=== PATIENT | female | born 1990 | race Two or more races ===

== ENCOUNTER 2025-04-25 17:18 | Emergency (ER) | payer OTHER ==
[~2025-04-25] VITALS: Ht 157.5 cm; Wt 88.9 kg
--- NOTE | 2025-04-25 19:04 | DVH ---
CLINICAL INDICATION: great toe injury TECHNIQUE: 3 radiographic views of the right foot were obtained. Comparison: None FINDINGS/IMPRESSION: There is no evidence of acute fracture or dislocation. Small plantar calcaneal bony spur. The visualized joint space is well maintained. The alignment is anatomical. There is no radiopaque foreign body. Questionable Mild dorsal mid foot soft tissue edema
--- NOTE | 2025-04-25 19:19 | ED.PDOC ---
Back pain HPI HPI Comments C/O RIGHT GREAT TOE PAIN STATES DROPPED SOMETHING ON IT STATES "I HAVE A BLOOD CLOT FROM THAT AND I SAW MY DR THIS MORNING AND WAS TOLD TO COME TO THE ER TO HAVE IT DRAINED." 05/02 PAIN STATED SWELLING NOTE Chief Complaint: Lower Extremity Time Seen by MD: 18:24 Reviewed Notes: Nurses Notes, Medications, Allergies Allergies: Coded Allergies: Ibuprofen (Verified Allergy, Unknown, 04/25/25) Information Source: Patient Mode of Arrival: Ambulatory Past Medical History PAST MEDICAL HISTORY: Denies Surgical History: Denies all surgeries FISH HATCHERY INSPECTOR History: No Pertinent FISH HATCHERY INSPECTOR History Family History Family History: Reviewed,noncontributory to illness Social History Smoker: Non-Smoker Alcohol: Denies ETOH Use Drugs: Denies Drug Use All Other Systems: Reviewed and Negative (see hpi) Physical Exam General Appearance: No Apparent Distress, Normal HEENT: Normal ENT Inspection, Pharynx Normal, TMs Normal Neck: Full Range of Motion, Non-Tender, Normal, Normal Inspection Respiratory: Chest Non-Tender, Lungs Clear, No Accessory Muscle Use, No Respiratory Distress, Normal Breath Sounds Cardiovascular: No Edema, No JVD, No Murmur, No Gallop, Normal Peripheral Pulses, Regular Rate/Rhythm Breast Exam: Deferred Gastrointestinal: No Organomegaly, Non Tender, No Pulsatile Mass, Normal Bowel Sounds, Soft Genitalia: Deferred Pelvic: Deferred Rectal: Deferred Extremities: No calf tenderness, Normal capillary refill, Normal inspection, Normal range of motion, Non-tender, No pedal edema Musculoskeletal : Apperance: Normal Neurologic: Alert, forensic economist II-XII nml as Tested, No Motor Deficits, Normal Affect, Normal Mood, No Sensory Deficits Cerebellar Function: Normal Reflexes: Normal Skin: Dry, Normal Color, Warm Lymphatic: No Adenopathy Was a procedure done? Was a procedure done?: No Back Pain Differential Dx Differential Diagnosis: Fracture, Musculoskeletal Pain X-Ray, Labs, Meds, VS Vital Signs Date Time Temp Pulse Resp B/P (MAP) Pulse Ox O2 Delivery O2 Flow Rate FiO2 04/25/25 17:25 97.9 87 18 130/86 95 97.9 X-Ray, Labs, Meds, VS Comment FINDINGS/IMPRESSION: There is no evidence of acute fracture or dislocation. Small plantar calcaneal bony spur. The visualized joint space is well maintained. The alignment is anatomical. There is no radiopaque foreign body. Questionable Mild dorsal mid foot soft tissue edema Time of 1ST Reevaluation: 18:24 Reevaluation 1ST: Unchanged Time of 2ND Reevaluation: 19:19 Reevaluation 2ND: Improved Patient Education/Counseling: Diagnosis, Treatment, Prognosis, Need For Follow Up Family Education/Counseling: No Family Present SEPSIS Sepsis Screen Date sepsis recognized/suspect: Apr 25, 2025 Time Sepsis recognized/suspect: 1727 Recent Procedure: No On Antibiotic Therapy: No Respiratory Rate >20: No Heart Rate >90: No Temp<36 C (96.8 F) or >38.3 C: No SBP <90 or MAP <65 mmHG: No New Acute Mental Status Change: No Is the patient on CPAP, BIPAP,: No Physician Orders R Foot 3 View Xray (04/25/25 18:25) Vital Signs Date Time Temp Pulse Resp B/P (MAP) Pulse Ox O2 Delivery O2 Flow Rate FiO2 04/25/25 17:25 97.9 87 18 130/86 95 97.9 Departure 1 Departure Time of Disposition: 19:18 Disposition: 01 HOME / SELF CARE / HOMELESS Condition: Stable Discharged With: Self Critical Care Note Critical Care Time?: No Stability Stability form required: SHANTI Beavers Apr 25, 2025 19:19
--- NOTE | 2025-04-25 19:22 | ED.PDOC ---
History of Present Illness HPI Comments 34 y/o F presents with c/c of right, great toe pain. Patient reports on dropping an object to said toe and being sent to the ER after seeing her PCP, this morning, due to having a 'blood clot.' 05/02 in severity. Associated swelling. No endorsement of any additional injuries or acute symptoms at this time. Chief Complaint: Lower Extremity Time Seen by MD: 18:45 Reviewed Notes: Nurses Notes, Medications, Allergies Allergies: Coded Allergies: Ibuprofen (Verified Allergy, Unknown, 04/25/25) Information Source: Patient Mode of Arrival: Ambulatory Severity: Moderate Timing: Hours Duration: Since onset Prehospital treatment: None Past Medical History PAST MEDICAL HISTORY: Denies Surgical History: Denies all surgeries ANALYST SALES History: No Pertinent ANALYST SALES History All Other Systems: Reviewed and Negative (As per HPI) Physical Exam General Appearance: No Apparent Distress, Normal HEENT: Pharynx Normal Neck: Full Range of Motion, Non-Tender Respiratory: Chest Non-Tender, Lungs Clear, No Accessory Muscle Use, No Respiratory Distress, Normal Breath Sounds Cardiovascular: No Murmur, Normal Peripheral Pulses, Regular Rate/Rhythm Breast Exam: Deferred Gastrointestinal: Non Tender, Soft Genitalia: Deferred Pelvic: Deferred Rectal: Deferred Extremities: Normal capillary refill, Normal range of motion, Non-tender Musculoskeletal : Location: Right Extremity Location: Great Toe (subungual hematoma +CSM, no open lesions ) Apperance: Normal Neurologic: Alert, No Motor Deficits, Normal Affect, Normal Mood, No Sensory Deficits Cerebellar Function: Normal Reflexes: NOT DONE Skin: Dry, Normal Color, Warm Lymphatic: No Adenopathy Was a procedure done? Was a procedure done?: Yes Sedation Sedation?: No Informed consent obtained: Yes Other Procedure Procedure subungual hematoma drainage Indication pain Anesthetic none Prep alcohol pads Success 3 ccs of blood removed pt tolerated well. improved pain. cleaned and dressed Informed consent obtained: Yes Risks, benefits, and alternati: Yes Differential Dx Considerations may include: fracture, sprain, contusion, among others X-Ray, Labs, Meds, VS Vital Signs Date Time Temp Pulse Resp B/P (MAP) Pulse Ox O2 Delivery O2 Flow Rate FiO2 04/25/25 20:09 97.8 60 19 108/63 (78) 99 97.8 04/25/25 20:09 60 19 99 Room Air 04/25/25 17:25 97.9 87 18 130/86 95 97.9 [facility] [id number] [facility] [id number] Ph: [phone] DIAGNOSTIC IMAGING Diagnostic Imaging Report : [id number] Signed PATIENT: MARICRUZ SANTOS ACCT: [id number] UNIT: [id number] : 1990 LOC: ER ROOM / BED: / AGE / SEX: 34 / F ADM STATUS: REG ER SERVICE 24 ORDERING PHYSICIAN: SHANTI URBINA PROCEDURE(s): RFOOT - R FOOT 3 VIEW XRAY REASON: great toe injury ORDER NUMBER(s): [id number], ACCESSION NUMBER(s): [id number] CLINICAL INDICATION: great toe injury TECHNIQUE: 3 radiographic views of the right foot were obtained. Comparison: None FINDINGS/IMPRESSION: There is no evidence of acute fracture or dislocation. Small plantar calcaneal bony spur. The visualized joint space is well maintained. The alignment is anatomical. There is no radiopaque foreign body. Questionable Mild dorsal mid foot soft tissue edema ATED BY: APOLONIA GONZALEZ DO DICTATED DATE/TIME: 04/25/251900 SIGNED BY: APOLONIA GONZALEZ DO SIGNED DATE/TIME: 04/25/251900 CC: X-Ray, Labs, Meds, VS Comment There is no evidence of acute fracture or dislocation. Small plantar calcaneal bony spur. The visualized joint space is well maintained. The alignment is anatomical. There is no radiopaque foreign body. Questionable Mild dorsal mid foot soft tissue edema SEE PROCEDURE NOTE Time of 1ST Reevaluation: 19:15 Reevaluation 1ST: Unchanged Time of 2ND Reevaluation: 19:29 Reevaluation 2ND: Improved Patient Education/Counseling: Diagnosis, Treatment, Need For Follow Up Family Education/Counseling: No Family Present SEPSIS Sepsis Screen Date sepsis recognized/suspect: Apr 25, 2025 Time Sepsis recognized/suspect: 1727 Recent Procedure: No On Antibiotic Therapy: No Respiratory Rate >20: No Heart Rate >90: No Temp<36 C (96.8 F) or >38.3 C: No SBP <90 or MAP <65 mmHG: No New Acute Mental Status Change: No Is the patient on CPAP, BIPAP,: No Physician Orders R Foot 3 View Xray (04/25/25 18:25) Dme: Crutches (04/25/25 19:29) Vital Signs Date Time Temp Pulse Resp B/P (MAP) Pulse Ox O2 Delivery O2 Flow Rate FiO2 04/25/25 20:09 97.8 60 19 108/63 (78) 99 97.8 04/25/25 20:09 60 19 99 Room Air 04/25/25 17:25 97.9 87 18 130/86 95 97.9 Departure 1 Departure Time of Disposition: 19:29 Impression: Primary Impression: Subungual contusion of toe Qualified Codes: S90.221A - Contusion of right lesser toe(s) with damage to nail, initial encounter Disposition: HOME / SELF CARE / HOMELESS Condition: Stable Discharged With: Self Critical Care Note Critical Care Time?: No Stability Stability form required: No Heart Score Heart Score: Heart Score Response (Comments) Value History N/A 0 EKG N/A 0 Age N/A 0 Risk Factors N/A 0 Troponin N/A 0 Total 0 I personally scribed for ER ([email or web address]) on 04/25/25 at 19:22. Electronically submitted by Adithya Grewal ([email or web address]). ER Apr 25, 2025 19:22 SHANTI URBINA INFRASTRUCTURE ADMINISTRATOR Apr 25, 2025 19:29
[2025-04-25 20:09] VITALS: BP 108/63; PULSE 60; RESP 19; TEMP 97.8; O2SAT 99
== END 2025-04-25 20:09 | disposition home or self-care (01) ==
LOC: ER 17:26
DX: S90.211A Contusion of right great toe with damage to nail, initial encounter (principal); Z88.6 Allergy status to analgesic agent; X58.XXXA Exposure to other specified factors, initial encounter; Y93.89 Activity, other specified; Y92.89 Other specified places as the place of occurrence of the external cause; Y99.8 Other external cause status
CPT/HCPCS: 11740; 73630